=== PATIENT | male | born 1995 | race Caucasian/White ===

== ENCOUNTER 2018-06-15 10:57 | Emergency (ER) | payer SELFPAY ==
[2018-06-15 10:58] VITALS: BP 150/80; PULSE 99; RESP 14; TEMP 36.9; O2SAT 99; BMI 25.6
--- NOTE | 2018-06-15 11:13 | ED.VISSUMM ---
- ER Visit Summary Date of Service: 06/15/18 Chief Complaint: Abdominal pain History of Present Illness: The patient is a 23 M who presents with abdominal pain and hematochezia that began today. Patient states he was having several episodes of diarrhea and his last one had dark blood in it. Patient admits to some mild diffuse abdominal pain. Patient describes as aching and queasy feeling. Patient admits to some nausea but denies any vomiting. Patient also admits to a foul odor in his urine and states his urine has been orange. Patient admits to subjective chills but denies any fevers. Patient denies any chest pain or shortness of breath. Physical Examination: Vital signs are stable. Patient is afebrile. Patient is in no acute distress. Oral mucosa is pink and moist. Neck is supple. Trachea is midline. There is no JVD noted. Heart was regular rate and rhythm. Lungs are clear and equal bilateral. There is good respiratory effort noted. Abdomen is soft. There is some mild diffuse tenderness. There is no rebound or guarding noted. Cranial nerves II through XII are intact. There are no focal motor or sensory deficits noted. The remaining physical exam is within normal limits. Test Results: CBC was within normal limits. Comprehensive metabolic profile showed a slightly elevated glucose of 108 but was otherwise within normal limits. Urinalysis was essentially within normal limits. CT scan of the abdomen and pelvis with oral and IV contrast does not show any acute intra-abdominal pathology. Emergency Department Course and Treatment: Patient was given IV fluids and Zofran here. Patient states his nausea has improved somewhat. Patient was given a prescription for Zofran and Bentyl. Patient was instructed to follow-up with his primary care physician in 5-7 days. Patient understood and was agreeable with the plan. All questions were answered. Disposition: Discharged home Impression: Abdominal pain This note was generated with u.sit dictation software. It may contain incorrect words, spelling, and punctuation that were not noted in review of the chart prior to signing ED Disposition - Plan for ED Patient: Disposition: Home or Assisted Living Chief Complaint: GI Bleed Diagnosis: Nausea vomiting and diarrhea Instructions: ED Vomiting Diarrhea Nonspecific Ad Prescriptions: Ondansetron [Zofran Odt] 4 mg PO Q8H PRN PRN #10 tab PRN Reason: Nausea Dicyclomine HCl [Bentyl] 20 mg PO TIDAC #20 cap Referrals: Care Physician,No Primary [Primary Care Provider] -
[2018-06-15 11:35] LABS: Bacteria 0 SEEN /hpf (None Seen); Mucous, Urine 0 SEEN /hpf (<or=2+); Red Blood Cells-Urine 0 SEEN /hpf (0-5); Squamous Epithelial Cells - UA 0 SEEN /hpf (0-5); White Blood Cells 0 SEEN /hpf (0-5)
[2018-06-15] MEDS: 0.9% Normal Saline 1,000 ML 1000 ML IV (11:37)
[2018-06-15] MEDS: Ondansetron 4 MG/2 ML Vial IV (11:37)
[2018-06-15 11:38] LABS: Color, Urine Yellow (Yellow); Glucose, Dipstick Normal (Normal); Ketone-Dipstick Negative (Negative); Leukocyte Esterase-Dipstick 25 /ul (Negative); Nitrite-Dipstick Negative (Negative); Occult Blood-Urine Negative /ul (Negative); Protein-Dipstick 15 mg/dl (Negative); Specific Gravity, Urine 1.015 (1.002-1.030); Urine Bilirubin Dipstick Negative (Negative); Urine Clarity Clear (Clear); Urine Urobilinogen Normal (Normal); Urine pH 6.5 (5.0 - 8.0)
[2018-06-15 11:49] LABS: Absolute Lymphocyte Count 1.07 X10^3/ul (0.83-4.51); Absolute Neutrophil Count 6.5 X10^3/uL (2.0-7.7); Basophil# 0.02 X10^3/uL; Basophil% 0.2 % (0-1); Eosinophil# 0.08 X10^3/uL; Hematocrit 44.1 % (40-54); Lymphocyte # 1.07 X10^3/ul (4.0); Lymphocyte % 13.1 % (19-41); Mean Corpuscular Hgb 29.4 pg (27.0-32.0); Mean Corpuscular Volume 86.5 fL (80-94); Monocyte# 0.48 X10^3/uL; Monocyte% 5.9 % (0-10); Neutrophil # 6.51 X10^3/uL (2.7-7.7); Neutrophil % 79.7 % (47-70); POSITIVE DIFFERENTIAL NO; Platelet Count 200 K/mm3 (150-450); RBC Distribution Width CV 12.4 % (11.6-14.6); RBC Distribution Width SD 39.7 fl (35.1-43.9); White Blood Count 8.2 K/mm3 (4.4-11.0)
[2018-06-15 11:50] LABS: POSITIVE COUNT NO; POSITIVE MORPHOLOGY NO
[2018-06-15 12:04] LABS: ALB/GLOB Ratio 1.4 RATIO (0.9-2.4); AST(SGOT) 23 U/L (15-37); Alanine Aminotransfer ALT/SGPT 38 U/L (16-61); Albumin, Serum 4.5 g/dL (3.2-5.0); Alkaline Phosphatase 60 U/L (45-117); Anion Gap 8 (5-15); BUN 11 mg/dL (7-18); BUN/Creat Ratio 13.3 RATIO (10-20); Calcium,Total 9.7 mg/dL (8.5-10.1); Chloride 105 mmol/L (98-107); Creatinine, Serum 0.83 mg/dL (0.70-1.30); EST Glomerular Filtration Rate 122 mL/min (>60); Est Glom Filt Rate - Afr Amer 147 mL/min (>60); Estimated Creatinine Clearance 146.16 ml/min; Globulin 3.2 g/dL (2.2-4.2); Glucose 108 mg/dL (74-106); Lipase 174 U/L (73-393); Protein, Total 7.7 g/dL (6.4-8.2); Sodium Level 140 mmol/L (136-145)
[2018-06-15 13:13] VITALS: BP 161/96; PULSE 68; RESP 16; O2SAT 97
[2018-06-15 15:45] VITALS: BP 110/57; PULSE 63; RESP 18; O2SAT 99
== END 2018-06-15 15:48 | disposition home or self-care (01) ==
PROVIDERS: Emergency Provider Emergency Medicine
DX: R10.9 Unspecified abdominal pain (principal); R11.2 Nausea with vomiting, unspecified; R19.7 Diarrhea, unspecified; R31.9 Hematuria, unspecified
CPT/HCPCS: 74177; 80053; 81001; 83690; 85025; 96361; 96374; 99283; J7030; Q9967; J2405

== ENCOUNTER 2020-07-15 10:45 | Emergency (ER) | payer MEDICAID, SELFPAY ==
[2020-07-15 10:46] VITALS: BP 179/97; PULSE 79; RESP 17; TEMP 36.4; O2SAT 100; BMI 22.3
--- NOTE | 2020-07-15 10:55 | RAD_ITS ---
STUDY: X-RAY CHEST REASON FOR EXAM: Male, 25 years old. Chest pain x 1 year, pretty consistent lately, arm pain/numbness also recently TECHNIQUE: COMPARISON: None. FINDINGS: The lungs are clear and expanded. There is no demonstrated pleural abnormality. Normal size heart. Normal mediastinum and michelle. Normal visualized pulmonary arteries. Normal visualized aortic arch and descending thoracic aorta. There is mild scoliosis which could be positional. Normal visualized ribs, clavicles, and shoulders. There is no demonstrated abnormality of the visualized soft tissue structures of the upper abdomen. RAD/Chest 1 View (Portable) IMPRESSION: No active pulmonary disease. Electronically Signed: Rodrigo Saavedra MD at 11:31 EDT Tel , Service support ,
--- NOTE | 2020-07-15 10:55 | EKG12_ITS ---
Test Reason : CP Blood Pressure : / mmHG Vent. Rate : 060 BPM Atrial Rate : 060 BPM P-R Int : 110 ms QRS Dur : 104 ms QT Int : 408 ms P-R-T Axes : 052 045 054 degrees QTc Int : 408 ms Sinus rhythm with short KS Otherwise normal ECG Confirmed by KATIE JAIME, JOSHUA ([id number]), script editor SOPHIE NAIR ([id number]) on 07/19/2020 9:55:02 AM Referred By: ZAN Confirmed By:JOSHUA WILSON MD
[2020-07-15] MEDS: Naproxen 250 MG Tablet 500 MG PO (10:59)
--- NOTE | 2020-07-15 11:01 | ED.DCSUM_ITS ---
- ER Visit Summary Date of Service: 07/15/20 Chief Complaint: Chest pain History of Present Illness: The patient is a 25 M with no primary care physician. He reports he said chest pain is been present for the past year. Said continuous sharp pain instead of 10 at worst and 5-10 currently. Is worsened by movement of his arms or breathing. Is relieved by activity. Denies any associated nausea, vomiting, diaphoresis, shortness of breath. Reports he did have an 8-hour drive home from [place] approximately 3 weeks ago. He denies ankle swelling or calf pain. Physical Examination: Vitals: Stable. Afebrile. General: Well-nourished and well-developed. Head: Normocephalic atraumatic. Neck: Supple, no lymphadenopathy. No JVD. Nontender. Cardiovascular: Regular rate and rhythm. No murmurs. Respiratory: No respiratory distress. Clear to auscultation bilaterally. Moderate tenderness palpation over the left costochondral margin that does reproduce his pain. Abdominal: Soft, nontender, nondistended, normal bowel sounds. No guarding, rebound, or peritoneal signs. Back: Nontender. Extremities: Nontender, no edema. Skin: Normal color, no rash. Neurologic: Alert and oriented ?3. Cranial nerves II through XII are intact. Normal strength and sensation. Psych: Normal affect. Test Results: EKG is sinus at 60 with a benign early repolarization pattern. He does have a short NH at 110 and a delta wave. 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 Chest x-ray shows no pneumothorax acute disease. Emergency Department Course and Treatment: Patient was treated with naproxen. He is resting comfortably. Treatment Plan: Patient will be discharged with naproxen. Instructed to follow- up with the [facility] in 1 week for his chest pain for further evaluation. I did have discussed with him the possibility of SVT and the need to see an fireworks display specialist. He was given the phone number for Dr. Jones at [facility]. Return to the emergency department for any worsening sy mptoms. Disposition: To home in improved and stable condition. Impression: 1. Musculoskeletal chest pain. 2. 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 This note was generated with Cognioation software. It may contain incorrect words, spelling, and punctuation that were not noted in review of the chart prior to signing ED Disposition - Plan for ED Patient: Instructions: ED CHEST PAIN [place], ED Tachycardia PAT Prescriptions: Naproxen [Naprosyn] 500 mg PO BID #14 tablet Referrals: Nadiya Duckworth [NON-STAFF] - 1 Week Additional Instructions: Follow-up with Dr. Jones, and fireworks display specialist at [facility], in 1 to 2 weeks for the possibility of [id number] syndrome. His phone number is [phone].
[2020-07-15 11:33] VITALS: PULSE 80; RESP 16
== END 2020-07-15 11:36 | disposition home or self-care (01) ==
LOC: ED 11:13
PROVIDERS: Emergency Provider Emergency Medicine
DX: R07.89 Other chest pain (principal)
CPT/HCPCS: 71045; 93005; 99282

== ENCOUNTER → 2020-08-07 10:18 | Outpatient (CLI) | payer MEDICAID, SELFPAY ==
[2020-07-15 10:46] VITALS: BMI 22.3
--- NOTE | 2020-08-07 10:21 | US_ITS ---
PROCEDURES: ULTRASOUND AORTA REASON FOR EXAM: Male, 25 years old. AAA BRUIT HEARD TECHNIQUE: Ultrasound evaluation of the aorta was performed with real-time and static martinez-scale imaging. COMPARISON: None. FINDINGS: There is no elongation or tortuosity of the abdominal aorta. Aorta measures: Proximal 1.6 cm. Middle 1.4 cm. Distal 1.3 cm. Aorta measure transversely: Proximal 1.9 cm. Middle 1.4 cm. Distal 1.5 cm. Right iliac artery measures: 0.9 cm. Right iliac artery measure transversely: 1.2 cm. Left iliac artery measures: 1.0 cm. Left iliac artery measure transversely: 1.2 cm. There is no demonstrated aneurysm.. US/Aorta IMPRESSION: Normal abdominal aorta. Electronically Signed: Truong South, at 12:52 EDT , Service support ,
== END ==
DX: R09.89 Other specified symptoms and signs involving the circulatory and respiratory systems (principal)
CPT/HCPCS: 76775